=== PATIENT | male | born 1960 | race Two or more races ===

== ENCOUNTER 2024-05-12 08:59 | Inpatient (IN) | payer OTHER ==
[~2024-05-12] VITALS: Ht 170.2 cm; Wt 68.0 kg
[2024-05-12] MEDS ORDERED: ONDANSETRON HCL/PF 4 MG/2 ML VIAL ONE (09:25)
[2024-05-12] MEDS ORDERED: MORPHINE SULFATE INJ 4 MG/ML DISP.SYRIN ONE (09:26)
[2024-05-12] MEDS: ONDANSETRON HCL/PF 4 MG/2 ML VIAL IVP ONE (09:30)
[2024-05-12] MEDS: MORPHINE SULFATE INJ 2 MG/ML DISP.SYRIN IV ONE (09:30)
[2024-05-12 09:37] LABS: BASOPHILS # (AUTO) 0.1 K/uL (0.0-0.2); BASOPHILS % (AUTO) 1.3 % (0.0-2.0); EOSINOPHILS # (AUTO) 0.2 K/uL (0.0-0.7); EOSINOPHILS % (AUTO) 1.8 % (0.0-6.0); HEMATOCRIT 32 % (39-51); HEMOGLOBIN 10.6 g/dL (13.5-17.5); LYMPHOCYTES % (AUTO) 10.5 % (20.0-44.0); MEAN CORPUSCULAR HEMOGLOBIN 30 PG (26.0-33.0); MEAN CORPUSCULAR HGB CONC 33 g/dl (31.0-36.0); MEAN CORPUSCULAR VOLUME 91 fL (80-96); MONOCYTES % (AUTO) 10.8 % (2.0-12.0); NEUTROPHILS # (AUTO) 7.2 K/uL (1.8-8.9); NEUTROPHILS % (AUTO) 75.6 % (43.0-81.0); PLATELET COUNT (AUTO) 267 K/uL (150-450); RED BLOOD CELL COUNT(AUTO) 3.48 MIL/uL (4.5-6.0); RED CELL DISTRIBUTION WIDTH 14.1 % (11.5-15.0); WHITE BLOOD COUNT (AUTO) 9.5 K/uL (4.3-11.0)
[2024-05-12 09:55] LABS: CALCIUM, SERUM 8.4 mg/dL (8.5-10.1); CREATININE 3.1 mg/dL (0.6-1.3); POTASSIUM 4.7 mmol/L (3.5-5.1)
[2024-05-12] MEDS ORDERED: ZOLPIDEM TARTRATE 5 MG TABLET PO PRN ×2 (18:00→18:30)
[2024-05-12] MEDS ORDERED: ACETAMINOPHEN 325 MG TABLET PO PRN (18:00)
[2024-05-12] MEDS ORDERED: MAGNESIUM HYDROXIDE 30 ML UDC PO PRN ×2 (18:00→18:30)
[2024-05-12] MEDS ORDERED: Z GUARD REMEDY 4 OZ OINT TP PRN ×2 (18:00→18:30)
[2024-05-12] MEDS ORDERED: INSULIN REGULAR, HUMAN 100 UNIT/ML 3 ML VIAL SQ PRN (18:00)
[2024-05-12] MEDS ORDERED: ONDANSETRON HCL/PF 4 MG/2 ML VIAL IVP PRN ×2 (18:00→18:30)
[2024-05-12] MEDS ORDERED: MAG HYDROX/AL HYDROX/SIMETH 30 ML UDC PO PRN ×2 (18:00→18:30)
[2024-05-12] MEDS ORDERED: IV D5/0.45 NACL 1,000 ML IV PRN (18:00)
[2024-05-12] MEDS ORDERED: DEXTROSE 50%-WATER 50 ML DISP.SYRIN IV PRN ×2 (18:00→18:30)
[2024-05-12 18:15] VITALS: BP 154/75; TEMP 97.8; O2SAT 99
[2024-05-12] MEDS ORDERED: CARV12.52 PO (19:17)
[2024-05-12] MEDS ORDERED: INSU100I26 SQ (19:17)
[2024-05-12] MEDS ORDERED: HYDR100T27 PO (19:17)
[2024-05-12] MEDS ORDERED: NIFE-34 PO (19:17)
[2024-05-12 20:00] VITALS: BP 176/81; TEMP 98.6; O2SAT 96
[2024-05-12] MEDS: IV D5/0.45 NACL 1,000 ML IV PRN (20:00)
[2024-05-12] MEDS ORDERED: BLOOD SUGAR DIAGNOSTIC 1 EACH STRIP IN SCH (21:00)
[2024-05-12] MEDS: BLOOD SUGAR DIAGNOSTIC 1 EACH STRIP IN SCH (22:03)
[2024-05-12] MEDS: INSULIN REGULAR, HUMAN 100 UNIT/ML 3 ML VIAL SQ PRN (22:04)
[2024-05-12 22:33] VITALS: BP 176/81; TEMP 98.6; O2SAT 96
[2024-05-12] MEDS: MORPHINE SULFATE INJ 2 MG/ML DISP.SYRIN SQ PRN (22:41)
[2024-05-13 08:00] VITALS: BP 166/77; TEMP 97.9; O2SAT 95
[2024-05-13] MEDS: PANTOPRAZOLE 40 MG VIAL IV SCH (08:37)
[2024-05-13 08:42] VITALS: BP 159/85; TEMP 98.2; O2SAT 98
[2024-05-13] MEDS ORDERED: PANTOPRAZOLE 40 MG VIAL IV SCH (09:00)
[2024-05-13] MEDS: hydrALAZINE HCL IV 20 MG VIAL IV PRN (10:37)
[2024-05-13] MEDS: CEFTRIAXONE 1 G in IV D5W 50 ML IV SCH (13:04)
[2024-05-13] MEDS: AZITHROMYCIN 500 MG in IV D5W 250 ML IV SCH (14:02)
[2024-05-13] MEDS: HEPARIN SODIUM, PORCINE 5000 UNITS/1 ML VIAL SQ SCH (14:30)
[2024-05-13] MEDS: ALBUTEROL HALF STRENGTH 1.25 MG/3 ML VIAL.NEB NEB SCH (14:30)
[2024-05-13] MEDS: IPRATROPIUM NEB FS 0.5 MG/2.5 ML AMPUL.NEB NEB SCH (14:30)
[2024-05-13 16:00] VITALS: BP 152/83; TEMP 97.9; O2SAT 94
[2024-05-13] MEDS: ACETAMINOPHEN 325 MG TABLET PO PRN (17:58)
[2024-05-13 18:30] LABS: INR 1.19 (0.91-1.10); PROTHROMBIN TIME 12.5 SECS (9.2-11.1)
[2024-05-13 20:00] VITALS: BP 135/81; TEMP 98.4; O2SAT 96
[2024-05-13 20:35] VITALS: O2SAT 93
[2024-05-14 07:41] VITALS: O2SAT 92
[2024-05-14] MEDS ORDERED: BUPIVACAINE 0.5 % PF 150 MG/30 ML VIAL ONE (07:52)
[2024-05-14] MEDS ORDERED: ANESTHESIA TRAY IN PYXIS 1 EA TRAY MC ONE (07:52)
[2024-05-14 08:00] VITALS: BP 183/83; TEMP 98.5; O2SAT 93
[2024-05-14 10:57] LABS: BASOPHILS # (AUTO) 0.1 K/uL (0.0-0.2); BASOPHILS % (AUTO) 0.6 % (0.0-2.0); EOSINOPHILS % (AUTO) 0.3 % (0.0-6.0); HEMATOCRIT 30 % (39-51); HEMOGLOBIN 10.1 g/dL (13.5-17.5); LYMPHOCYTES # (AUTO) 0.7 K/uL (0.8-4.8); LYMPHOCYTES % (AUTO) 7.2 % (20.0-44.0); MEAN CORPUSCULAR HEMOGLOBIN 30 PG (26.0-33.0); MEAN CORPUSCULAR HGB CONC 33 g/dl (31.0-36.0); MEAN CORPUSCULAR VOLUME 90 fL (80-96); MONOCYTES # (AUTO) 0.8 K/uL (0.1-1.30); MONOCYTES % (AUTO) 8.3 % (2.0-12.0); NEUTROPHILS # (AUTO) 8.1 K/uL (1.8-8.9); NEUTROPHILS % (AUTO) 83.6 % (43.0-81.0); PLATELET COUNT (AUTO) 259 K/uL (150-450); RED BLOOD CELL COUNT(AUTO) 3.38 MIL/uL (4.5-6.0); RED CELL DISTRIBUTION WIDTH 13.5 % (11.5-15.0); WHITE BLOOD COUNT (AUTO) 9.7 K/uL (4.3-11.0)
[2024-05-14 11:31] LABS: CALCIUM, SERUM 8.5 mg/dL (8.5-10.1); CREATININE 4.5 mg/dL (0.6-1.3); MAGNESIUM 1.9 mg/dL (1.8-2.4)
[2024-05-14] MEDS ORDERED: SODIUM ZIRCONIUM CYCLOSILICATE 10 GM POWD.PACK PO SCH (12:00)
[2024-05-14 16:00] VITALS: BP 153/83; TEMP 97.2; O2SAT 93
[2024-05-14 20:00] VITALS: BP 156/72; TEMP 98.4; O2SAT 97
[2024-05-15 08:00] VITALS: BP 174/70; TEMP 98.6; O2SAT 98
[2024-05-15 08:03] LABS: BASOPHILS % (AUTO) 0.5 % (0.0-2.0); EOSINOPHILS # (AUTO) 0.1 K/uL (0.0-0.7); EOSINOPHILS % (AUTO) 0.7 % (0.0-6.0); HEMATOCRIT 27 % (39-51); HEMOGLOBIN 9.3 g/dL (13.5-17.5); LYMPHOCYTES # (AUTO) 0.6 K/uL (0.8-4.8); LYMPHOCYTES % (AUTO) 7.5 % (20.0-44.0); MEAN CORPUSCULAR HEMOGLOBIN 31 PG (26.0-33.0); MEAN CORPUSCULAR HGB CONC 35 g/dl (31.0-36.0); MEAN CORPUSCULAR VOLUME 89 fL (80-96); MONOCYTES # (AUTO) 0.8 K/uL (0.1-1.30); MONOCYTES % (AUTO) 10.2 % (2.0-12.0); NEUTROPHILS # (AUTO) 6.4 K/uL (1.8-8.9); NEUTROPHILS % (AUTO) 81.1 % (43.0-81.0); PLATELET COUNT (AUTO) 232 K/uL (150-450); RED BLOOD CELL COUNT(AUTO) 2.99 MIL/uL (4.5-6.0); RED CELL DISTRIBUTION WIDTH 13.6 % (11.5-15.0); WHITE BLOOD COUNT (AUTO) 7.8 K/uL (4.3-11.0)
[2024-05-15 08:14] LABS: CALCIUM, SERUM 7.9 mg/dL (8.5-10.1); CREATININE 3.4 mg/dL (0.6-1.3); MAGNESIUM 1.7 mg/dL (1.8-2.4); PHOSPHORUS 5.4 mg/dL (2.5-4.9); POTASSIUM 4.4 mmol/L (3.5-5.1)
[2024-05-15] MEDS ORDERED: FENTANYL PF 100MCG/2ML AMPUL ONE (08:36)
[2024-05-15] MEDS ORDERED: HYDROMORPHONE INJ 2 MG/ML DISP.SYRIN ONE (08:37)
[2024-05-15] MEDS ORDERED: ROCURONIUM BROMIDE 50 MG/5 ML ONE (08:49)
[2024-05-15] MEDS ORDERED: TRANEXAMIC ACID 1,000 MG/10 ML VIAL ONE (08:50)
[2024-05-15] MEDS ORDERED: BUPIVACAINE 0.5 % PF 150 MG/30 ML VIAL ONE (10:18)
[2024-05-15] MEDS ORDERED: hydrALAZINE HCL IV 20 MG VIAL ONE (11:01)
[2024-05-15] MEDS: hydrALAZINE HCL IV 20 MG VIAL IV PRN (11:22)
[2024-05-15] MEDS ORDERED: HYDROMORPHONE 1 MG/1 ML DISP.SYRIN ONE (11:23)
[2024-05-15] MEDS ORDERED: HYDROMORPHONE INJ 2 MG/ML DISP.SYRIN IV PRN (11:30)
[2024-05-15] MEDS ORDERED: ONDANSETRON HCL/PF 4 MG/2 ML VIAL IVP PRN (11:30)
[2024-05-15] MEDS: HYDROMORPHONE 1 MG/1 ML DISP.SYRIN IV PRN (11:31)
[2024-05-15] MEDS: CEFTRIAXONE 1 G in IV D5W 50 ML IV SCH (12:00)
[2024-05-15 12:58] VITALS: O2SAT 94
[2024-05-15 13:15] VITALS: O2SAT 94
[2024-05-15] MEDS: MAGNESIUM OXIDE 400 MG TABLET PO ONE (15:42)
[2024-05-15 16:00] VITALS: BP 158/69; TEMP 98.2; O2SAT 98
[2024-05-15 20:00] VITALS: BP 150/71; TEMP 97.7; O2SAT 99
[2024-05-15 20:41] VITALS: O2SAT 98
[2024-05-16 06:46] LABS: BASOPHILS % (AUTO) 0.1 % (0.0-2.0); EOSINOPHILS # (AUTO) 0.1 K/uL (0.0-0.7); EOSINOPHILS % (AUTO) 0.6 % (0.0-6.0); HEMATOCRIT 28 % (39-51); HEMOGLOBIN 9.5 g/dL (13.5-17.5); LYMPHOCYTES # (AUTO) 0.6 K/uL (0.8-4.8); LYMPHOCYTES % (AUTO) 6.5 % (20.0-44.0); MEAN CORPUSCULAR HEMOGLOBIN 30 PG (26.0-33.0); MEAN CORPUSCULAR HGB CONC 34 g/dl (31.0-36.0); MEAN CORPUSCULAR VOLUME 90 fL (80-96); MONOCYTES # (AUTO) 0.9 K/uL (0.1-1.30); MONOCYTES % (AUTO) 10.1 % (2.0-12.0); NEUTROPHILS # (AUTO) 7.7 K/uL (1.8-8.9); NEUTROPHILS % (AUTO) 82.7 % (43.0-81.0); PLATELET COUNT (AUTO) 257 K/uL (150-450); RED BLOOD CELL COUNT(AUTO) 3.14 MIL/uL (4.5-6.0); RED CELL DISTRIBUTION WIDTH 13.5 % (11.5-15.0); WHITE BLOOD COUNT (AUTO) 9.3 K/uL (4.3-11.0)
[2024-05-16 06:55] LABS: CALCIUM, SERUM 8.6 mg/dL (8.5-10.1); CREATININE 4.7 mg/dL (0.6-1.3); MAGNESIUM 2.2 mg/dL (1.8-2.4); PHOSPHORUS 7.2 mg/dL (2.5-4.9); POTASSIUM 5.2 mmol/L (3.5-5.1)
[2024-05-16 07:30] VITALS: BP 160/65; TEMP 98.1; O2SAT 95
[2024-05-16 08:24] VITALS: O2SAT 97
[2024-05-16] MEDS: HEPARIN SODIUM, PORCINE 5000 UNITS/1 ML VIAL SQ SCH (09:00)
[2024-05-16] MEDS: PANTOPRAZOLE 40 MG TABLET.DR PO SCH (09:00)
[2024-05-16] MEDS: SODIUM ZIRCONIUM CYCLOSILICATE 10 GM POWD.PACK PO ONE (14:12)
[2024-05-16 16:00] VITALS: BP 177/80; TEMP 97.7; O2SAT 97
[2024-05-16] MEDS: APIXABAN 5 MG TABLET PO SCH (16:56)
[2024-05-16] MEDS: hydrALAZINE HCL 25 MG TABLET PO PRN (17:23)
[2024-05-16 20:00] VITALS: BP 149/71; TEMP 98.4; O2SAT 97
[2024-05-16] MEDS: AMOX/CLAVULANATE 875 MG TABLET PO SCH (20:46)
[2024-05-16 21:05] VITALS: O2SAT 92
[2024-05-17 07:59] VITALS: O2SAT 94
[2024-05-17 08:00] VITALS: BP 133/74; TEMP 98.4; O2SAT 96
[2024-05-17] MEDS ORDERED: ALBU1.25 NEB (15:37)
[2024-05-17] MEDS ORDERED: PANT40TA49 PO (15:37)
[2024-05-17] MEDS ORDERED: AMOX1TAB16 PO (15:37)
[2024-05-17] MEDS ORDERED: APIX5TAB PO (15:37)
[2024-05-17 16:00] VITALS: BP 144/56; TEMP 98.1; O2SAT 95
[2024-05-17 19:58] VITALS: O2SAT 95
[2024-05-17 20:00] VITALS: BP 171/84; TEMP 98.2; O2SAT 96
[2024-05-17 23:55] VITALS: BP 162/65
[2024-05-18 01:06] LABS: HBSAG SCREEN Negative (Negative); HEPATITIS A AB, IgM Negative (Negative); HEPATITIS B CORE AB, IgM Negative (Negative)
[2024-05-18 01:48] VITALS: O2SAT 95
[2024-05-18 08:00] VITALS: BP 156/81; TEMP 98.1; O2SAT 98
[2024-05-18 08:17] VITALS: O2SAT 94
[2024-05-18] MEDS ORDERED: HYDROCODONE/APAP 5/325MG TABLET PO PRN (13:30)
== END 2024-05-18 18:20 | DRG 308 ==
LOC: ER 09:04 → MED 18:35
PROVIDERS: ADMIT Student in an Organized Health Care Education/Training Program; ATTEND Student in an Organized Health Care Education/Training Program
PROC: 5A1D70Z Performance of Urinary Filtration, Intermittent, Less than 6 Hours Per Day (ICD-10-PCS; 2024-05-13)
PROC: 0QS636Z Reposition Right Upper Femur with Intramedullary Internal Fixation Device, Percutaneous Approach (ICD-10-PCS; principal; 2024-05-15)
DX: S72.141A Displaced intertrochanteric fracture of right femur, initial encounter for closed fracture (principal); I31.39 Other pericardial effusion (noninflammatory); J15.9 Unspecified bacterial pneumonia; I12.0 Hypertensive chronic kidney disease with stage 5 chronic kidney disease or end stage renal disease; E87.1 Hypo-osmolality and hyponatremia; I82.611 Acute embolism and thrombosis of superficial veins of right upper extremity; N18.6 End stage renal disease; E11.22 Type 2 diabetes mellitus with diabetic chronic kidney disease; D64.9 Anemia, unspecified; E78.5 Hyperlipidemia, unspecified; Z99.2 Dependence on renal dialysis; W19.XXXA Unspecified fall, initial encounter; Y93.9 Activity, unspecified; Y92.89 Other specified places as the place of occurrence of the external cause; E87.5 Hyperkalemia; E83.42 Hypomagnesemia; J20.9 Acute bronchitis, unspecified; J98.11 Atelectasis; E11.40 Type 2 diabetes mellitus with diabetic neuropathy, unspecified; I73.9 Peripheral vascular disease, unspecified; F17.210 Nicotine dependence, cigarettes, uncomplicated; I70.0 Atherosclerosis of aorta; M89.8X9 Other specified disorders of bone, unspecified site; W18.30XA Fall on same level, unspecified, initial encounter; Z79.01 Long term (current) use of anticoagulants; Z79.899 Other long term (current) drug therapy
CPT/HCPCS: 36415; 71045-TC; 72192-TC; 73502; 73552; 73560-TC; 80048-TC; 82962-TC; 83735-TC; 84100-TC; 85025-TC; 85610-TC; 86850-TC; 87081-TC; 90935-TC; 93307-TC; 94799-TC; 97110-TC; 97116-TC; 97530-TC; 97535-TC; A4217; A4223; A6209; A6253; C1713; G0378; J0360; J0456; J0690; J0696; J1171; J1644; J1815; J2270; J2405; J2470; J2704; J2765; J3010; J3490; J7030; J7042; J7060